=== PATIENT | female | born 1995 | race Caucasian/White ===

== ENCOUNTER 2023-08-01 05:51 | Emergency (ER) | payer SELFPAY ==
[~2023-08-01] VITALS: Ht 180.3 cm; Wt 123.4 kg
[2023-08-01 06:12] VITALS: BP 147/91; PULSE 82; RESP 19; TEMP 97.6; O2SAT 98
== END 2023-08-01 11:18 | disposition left against medical advice (07) ==
LOC: ER 05:51
DX: Z53.21 Procedure and treatment not carried out due to patient leaving prior to being seen by health care provider (principal)
CPT/HCPCS: 99281

== ENCOUNTER 2024-01-29 04:18 | Emergency (ER) | payer MEDICAID ==
[~2024-01-29] VITALS: Ht 180.3 cm; Wt 91.0 kg
[~2024-01-29 04:18] MED LIST: KEPP500 PO; PHEN100C4 MT
[2024-01-29 04:54] VITALS: BP 109/61; PULSE 73; RESP 18; TEMP 98.8; O2SAT 99
== END 2024-01-29 05:00 | disposition left against medical advice (07) ==
LOC: ER 04:18
DX: M54.2 Cervicalgia (principal); Z53.21 Procedure and treatment not carried out due to patient leaving prior to being seen by health care provider

== ENCOUNTER 2024-10-09 21:32 | Emergency (ER) | payer MEDICAID ==
[~2024-10-09] VITALS: Ht 167.6 cm; Wt 91.0 kg
[~2024-10-09 21:32] MED LIST changes: +EMTR1TAB12 PO; +TOPI25TA48 PO
[2024-10-09 21:40] VITALS: TEMP 98; O2SAT 90
[2024-10-09 21:51] LABS: BASOPHILS % 0.4 % (0.0-2.0); EOSINOPHILS % 0.6 % (0.0-5.0); HEMOGLOBIN. 12.6 g/dL (12.0-16.0); LYMPHOCYTES % 44.5 % (20.0-50.0); MEAN CORPUSCULAR HEMOGLOBIN 29.6 pg (28.0-32.0); MEAN CORPUSCULAR HGB CONC 33.2 g/dL (31.0-37.0); MEAN CORPUSCULAR VOLUME 89.2 fL (81.0-99.0); MEAN PLATELET VOLUME 9.4 fl (7.4-10.4); MONOCYTES % 3.9 % (2.0-8.0); NEUTROPHILS % 50.6 % (40.0-76.0); PLATELET 239 x1000/uL (130-400); RED BLOOD CELL COUNT 4.26 mill/uL (4.2-5.4); RED CELL DISTRIBUTION WIDTH 14.1 % (11.6-14.6); WHITE BLOOD COUNT 5.6 x1000/uL (4.5-11.0)
[2024-10-09 21:59] LABS: CARBON DIOXIDE 27 mEq/L (21-32); CHLORIDE 113 mEq/L (98-107); POTASSIUM 3.8 mEq/L (3.5-5.1); SODIUM 145 mEq/L (136-145)
[2024-10-09 22:00] LABS: CALCIUM 9.1 mg/dL (8.7-10.4)
[2024-10-09 22:02] LABS: HCG SCREEN NEGATIVE
[2024-10-09 22:04] LABS: CREATININE 0.7 mg/dL (0.6-1.0); GLUCOSE 89 mg/dL (70-105)
[2024-10-09 22:05] LABS: ETHANOL BLOOD 210 mg/dL (<10); UREA NITROGEN BLOOD 11 mg/dL (9-23)
[2024-10-09 22:06] LABS: CREATINE KINASE 95 IU/L (34-145)
[2024-10-09 22:09] LABS: CARBAMAZEPINE < 0.4 ug/mL (4-12); PHENOBARBITAL < 3.0 ug/mL (15.0-40.0); PHENYTOIN < 2.0 ug/mL (10-20); THYROID STIMULATING HORMONE 0.98 uIU/mL (0.55-4.78); TROPONIN I HIGH SENSITIVITY < 4 ng/L (3.0-34); VALPROIC ACID < 3.0 ug/mL (50-100)
[2024-10-09 22:13] VITALS: BP 174/97; PULSE 88; RESP 20
[2024-10-09] MEDS: ONDANSETRON HCL 4MG/2ML INJ IV STA (22:13)
[2024-10-09] MEDS: SODIUM CHLORIDE 0.9% 1,000 ML IV ONE (22:13)
[2024-10-09] MEDS: LEVETIRACETAM 1000MG PREMIX 100 ML IV ONE (22:13)
[2024-10-10] MEDS: POTASSIUM CHLORIDE 20MEQ/PACKET PO NR (00:01)
[2024-10-10] MEDS: KCL 20MEQ/100ML PREMIX 100 ML IV SCH (00:43)
[2024-10-10] MEDS ORDERED: LORAZEPAM 2MG/ML INJ IV PRN ×2 (01:00→01:45)
[2024-10-10] MEDS ORDERED: MAGNESIUM/ALUMINUM HYDROXIDE/SIMETHICONE 30ML UDC PO PRN (01:00)
[2024-10-10] MEDS ORDERED: ACETAMINOPHEN 325MG TABLET PO PRN ×2 (01:00)
[2024-10-10] MEDS ORDERED: ONDANSETRON HCL 4MG/2ML INJ IV PRN (01:00)
[2024-10-10] MEDS ORDERED: DOCUSATE SODIUM 100MG CAPSULE PO PRN (01:00)
[2024-10-10] MEDS ORDERED: IPRATROPIUM/ALBUTEROL 0.5-3(2.5)MG/3ML NEB HHN PRN (01:00)
[2024-10-10] MEDS ORDERED: CLONIDINE 0.1MG TABLET PO PRN (01:00)
[2024-10-10] MEDS ORDERED: GUAIFENESIN 200MG/10ML SUGAR FREE UDC PO PRN (01:00)
[2024-10-10] MEDS: SODIUM CHLORIDE 0.9% 500 ML IV ONE (01:36)
[2024-10-10] MEDS ORDERED: NOREPINEPHRINE 8MG/250ML PMX 250 ML IV PRN (01:45)
[2024-10-10] MEDS: SODIUM CHLORIDE 0.9% 1,000 ML IV ONE (02:16)
[2024-10-10] MEDS: SODIUM CHLORIDE 0.45% 1,000 ML IV SCH (02:30)
[2024-10-10] MEDS: POTASSIUM CHLORIDE 20MEQ/PACKET PO SCH (03:00)
[2024-10-10 03:02] LABS: PHOSPHORUS 4.4 mg/dL (2.5-4.9)
[2024-10-10] MEDS: FOLIC ACID 1 MG, THIAMINE HCL 100 MG, MVI, ADULT NO.1 10 ML in DEXTROSE 5% WATER 1,000 ML IV ONE (03:06)
[2024-10-10] MEDS ORDERED: LEVETIRACETAM 1000MG PREMIX 100 ML IV SCH (09:00)
[2024-10-10] MEDS ORDERED: PANTOPRAZOLE SODIUM 40 MG/VIAL IV SCH (09:00)
[2024-10-10] MEDS ORDERED: PATIENT'S OWN MEDICATION PO SCH (09:00)
[2024-10-10] MEDS ORDERED: ENOXAPARIN 30MG/0.3ML SYR SUBCUT SCH (09:00)
[2024-10-10] MEDS ORDERED: TOPIRAMATE 25MG TABLET PO SCH (09:00)
[2024-10-10] MEDS ORDERED: LEVETIRACETAM 1,000MG in NACL 100ML PREMIX IV SCH (09:00)
== END 2024-10-10 03:03 | disposition admitted as inpatient to this hospital (09) ==
LOC: ER 21:32 → EDBEDREQSVC 23:30 → ER 10-10 03:03
DX: G40.901 Epilepsy, unspecified, not intractable, with status epilepticus (principal); F10.129 Alcohol abuse with intoxication, unspecified; Z79.899 Other long term (current) drug therapy; Z79.624 Long term (current) use of inhibitors of nucleotide synthesis; Y90.7 Blood alcohol level of 200-239 mg/100 ml
CPT/HCPCS: 80048; 80320; 80156; 82550; 80185; 83036; 84703; 83690; 83735; 80184; 84100; 84443; 80165; 85025; 84484; 36415; 84145; 71045; 70450; 96365; 96375; 99291; J1953; J2405; J7030; J3490 ×2; J3480; J3411; J7070; G0480